=== PATIENT | male | born 1965 | race Caucasian/White ===

== ENCOUNTER 2020-07-02 01:52 | Emergency (ER) | payer OTHER ==
[~2020-07-02] VITALS: Ht 175.3 cm; Wt 122.7 kg
--- NOTE | 2020-07-02 02:11 | PHYS DOC ---
Adult General HPI HPI Patient is a 55-year-old male who presents with left ankle pain. States he is in the , and [place] but lives in [place]. States he has had injuries to his left ankle before but is been doing well. States over the last couple of days he has been walking more than usual and began having pain yesterday in his left lower ankle, 6 out of 10, dull and achy in nature with no radiation. States he can walk but it causes him discomfort. Denies any recent travel, traumas, fevers, history of gout. Review of Systems Review of Systems Review of systems otherwise unremarkable except noted in HPI Physical Exam Physical Exam Constitutional: Well developed, well nourished, no acute distress, non-toxic appearance. [] Cardiovascular:Heart rate regular rhythm, no murmur [] Skin: Warm, dry, no erythema, no rash. [] Extremities: Patient with tenderness on the lateral left ankle just distal to the lateral malleolus. Neurovascular exam intact. Range of motion intact. Neurologic: Alert and oriented X 3, normal motor function, normal sensory function, no focal deficits noted. [] Psychologic: Affect normal, judgement normal, mood normal. [] EKG EKG [] Radiology/Procedures Radiology/Procedures []LEFT ANKLE AP, LATERAL, OBLIQUE Clinical Indication: Reason: trauma, INJURED WALKING ON 06/30/2020, H/O CHRONIC PAIN Comparison: None. Findings: There is no acute fracture or dislocation. Faint well-corticated punctate ossific body at the tip of the lateral malleolus may be due to old injury or accessory ossicle. Mineralization is normal. There is moderate Achilles calcaneal enthesophyte. Small inferior calcaneal bone spur. The ankle mortise is intact. There is no radiographically apparent soft tissue swelling. IMPRESSION: No acute fracture. Electronically signed by: Jose Santiago MD (07/02/2020 2:26 AM) [facility] Heart Score C/O Chest Pain: No Risk Factors: Risk Factors: DM, Current or recent (<one month) smoker, HTN, HLP, family history of CAD, obesity. Risk Scores: Risk Factors: DM, Current or recent (<one month) smoker, HTN, HLP, family history of CAD, obesity. Course & Med Decision Making Course & Med Decision Making Patient is a 55-year-old male who presents with left ankle pain Vital signs not concerning. Physical exam noted above. Patient given Tylenol and ice pack. Patient took celecoxib at home before coming to the ED Imaging noted above with no acute osseous abnormalities. There was faint, well- corticated punctate ossific body at the tip of the lateral malleolus possibly secondary to old injury in a moderate Achilles calcaneal and SSI with calcaneal bone spur. Discussed all findings with patient. Given pain recommendations for home. Advised to follow-up with primary care to discuss need for further imaging. Gave return precautions to the ED. Patient grateful, verbalized understanding and agreed with plan of discharge. [] Dragon Disclaimer Dragon Disclaimer This electronic medical record was generated, in whole or in part, using a voice recognition dictation system. Departure Departure: Impression: Primary Impression: Ankle pain Disposition: 01 DC HOME SELF CARE/HOMELESS Condition: GOOD Referrals: GUSTAVO RAYA MD Patient Instructions: RICE - Routine Care for Injuries Additional Instructions: Please read all the attached information. You can begin a Tylenol, ibuprofen, Benadryl and ice regimen at home for pain control. You can also use the [place] wrap given and rapid as demonstrated. Please call your primary care physician first thing Friday morning to discuss your ED visit and set up a follow-up visit to discuss need for further imaging such as MRI to evaluate soft tissue as you had no broken bones. Please come back to the ED with new or concerning symptoms. Scripts Hydrocodone Bit/Acetaminophen (HYDROCODONE-APAP 5-325 ) 1 Each Tablet 1 TAB PO BID PRN for PAIN for 3 Days, #6 TAB 0 Refills Prov: SEBASTIÁN COURTNEY MD 07/02/20 SEBASTIÁN COURTNEY MD Jul 02, 2020 02:11
[2020-07-02] MEDS ORDERED: LOSA1TAB25 PO (02:16)
[2020-07-02] MEDS ORDERED: CELE100C PO (02:16)
[2020-07-02] MEDS ORDERED: [UNRECOGNIZED DRUG - REMARK] (02:16)
--- NOTE | 2020-07-02 02:29 | RAD ---
LEFT ANKLE AP, LATERAL, OBLIQUE Clinical Indication: Reason: trauma, INJURED WALKING ON 06/30/2020, H/O CHRONIC PAIN Comparison: None. Findings: There is no acute fracture or dislocation. Faint well-corticated punctate ossific body at the tip of the lateral malleolus may be due to old injury or accessory ossicle. Mineralization is normal. There is moderate Achilles calcaneal enthesophyte. Small inferior calcaneal bone spur. The ankle mortise is intact. There is no radiographically apparent soft tissue swelling. IMPRESSION: No acute fracture. Electronically signed by: Jose Santiago MD (07/02/2020 2:26 AM) [facility]
[2020-07-02] MEDS ORDERED: HYDR-2155 PO (02:42)
[2020-07-02 02:57] VITALS: BP 119/80
[2020-07-02] MEDS ORDERED: ACETAMINOPHEN 500 MG TABLET PO ONE (03:00)
== END 2020-07-02 02:58 | disposition home or self-care (01) ==
LOC: ER 01:52
DX: M25.572 Pain in left ankle and joints of left foot (principal)
CPT/HCPCS: 73610; 99284